=== PATIENT | male | born 2000 | race Caucasian/White ===

== ENCOUNTER 2023-08-02 10:42 | Emergency (ER) | payer BC | END 2023-08-02 11:36 | disposition home or self-care (01) | LOC: MW.ED 10:42 | DX: M54.32 Sciatica, left side (principal); W11.XXXA Fall on and from ladder, initial encounter | CPT/HCPCS: 99283 ==

== ENCOUNTER 2024-10-20 09:37 | Emergency (ER) | payer BC | END 2024-10-20 11:04 | disposition home or self-care (01) | LOC: MW.ED 09:37 | DX: M26.622 Arthralgia of left temporomandibular joint (principal); Z79.899 Other long term (current) drug therapy | CPT/HCPCS: 99283 ==

== ENCOUNTER 2025-01-27 07:25 | Emergency (ER) | payer BC | END 2025-01-27 08:16 | disposition home or self-care (01) | LOC: MW.ED 07:25 | DX: B49 Unspecified mycosis (principal); Z87.891 Personal history of nicotine dependence | CPT/HCPCS: 99282 ==